=== PATIENT | female | born 1975 | race Native Hawaiian/Other Pacific Islander ===

== ENCOUNTER → 2021-12-19 | Outpatient (CLI) | payer BC | LOC: US 12-15 10:41 | PROVIDERS: ATTEND Nurse Practitioner Family | DX: Z13.220 Encounter for screening for lipoid disorders (principal); Z13.1 Encounter for screening for diabetes mellitus; Z80.3 Family history of malignant neoplasm of breast; D17.20 Benign lipomatous neoplasm of skin and subcutaneous tissue of unspecified limb; Z12.31 Encounter for screening mammogram for malignant neoplasm of breast ==